=== PATIENT | female | born 1945 | race Caucasian/White ===

== ENCOUNTER 2018-09-11 18:24 | Emergency (ER) | payer MEDICARE, BC ==
[~2018-09-11] VITALS: Ht 167.6 cm; Wt 111.5 kg
[2018-09-11] MEDS ORDERED: LORazepam 2 mg/ml vial IV ONE (19:00)
[2018-09-11 19:18] LABS: ALANINE AMINOTRANSFERASE 15 U/L (12-78); ALBUMIN 3.6 G/DL (3.4-5.0); ALKALINE PHOSPHATASE 119 IU/L (46-116); ANION GAP 15 (8-16); ASPARTATE AMINO TRANSFERASE 21 U/L (10-37); BILIRUBIN,TOTAL 0.3 MG/DL (0.1-1.0); BLOOD UREA NITROGEN 15 MG/DL (7-18); BUN/CREATININE RATIO 13.6 (6.6-38.0); CALCIUM 8.4 MG/DL (8.5-10.1); CHLORIDE 105 MMOL/L (99-107); GLUCOSE 131 MG/DL (70-104); SODIUM 142 MMOL/L (135-145); TOTAL CARBON DIOXIDE 21.6 MMOL/L (24-32); TOTAL PROTEIN 7.3 G/DL (6.4-8.2); eGFR 49 ML/MIN
[2018-09-11 19:21] LABS: BASOPHILS % (AUTO) 0.3 % (0-1); EOSINOPHILS # (AUTO) 0.1 X10'3 (0-0.9); EOSINOPHILS % (AUTO) 2.2 % (0-6); HEMATOCRIT 34.9 % (35.0-45.0); HEMOGLOBIN 11.6 g/dl (12.0-16.0); LYMPHOCYTES # (AUTO) 1.8 X10'3 (1.1-4.8); LYMPHOCYTES % (AUTO) 27.6 % (21-51); MEAN CORPUSCULAR HEMOGLOBIN 29.6 PG (27.0-31.0); MEAN CORPUSCULAR HGB CONC 33.3 % (33.0-36.5); MEAN PLATELET VOLUME 7.4 FL (7.4-10.4); MONOCYTES # (AUTO) 0.5 X10'3 (0-0.9); MONOCYTES % (AUTO) 8.1 % (2-12); NEUTROPHILS # (AUTO) 4.1 X10'3 (1.8-7.7); NEUTROPHILS % (AUTO) 61.8 % (42-75); PLATELET COUNT 216 X10'3 (140-440); RED BLOOD COUNT 3.93 X10'6 (4.20-5.60); RED CELL DISTRIBUTION WIDTH 14.8 % (11.5-14.5); WHITE BLOOD COUNT 6.6 X10'3 (4.5-11.0)
[2018-09-11 19:24] LABS: D-DIMER 1.75 MG/L FEU (0-0.50); PARTIAL THROMBOPLASTIN TIME 30 SECONDS (22-32); PROTHROMBIN TIME 10.5 SECONDS (9.0-12.0)
[2018-09-11] MEDS ORDERED: GABA100C PO (19:52)
[2018-09-11] MEDS ORDERED: iohexol 350MG/ML 100ml bottle IV ONE (19:55)
[2018-09-11 20:25] VITALS: BP 150/77
--- NOTE | 2018-09-11 20:29 | NUR ---
Patient denies relief of anxiety after ativan adm, ERP informed.
[2018-09-11] MEDS ORDERED: LORazepam 0.5 MG tablet PO PRN (20:35)
[2018-09-11] MEDS ORDERED: AZIT-63 PO (20:41)
[2018-09-11] MEDS ORDERED: LORA1TAB PO (20:41)
== END 2018-09-11 21:16 | disposition home or self-care (01) ==
LOC: ER 18:25
DX: J40 Bronchitis, not specified as acute or chronic (principal); F41.9 Anxiety disorder, unspecified; Z79.2 Long term (current) use of antibiotics; Z79.899 Other long term (current) drug therapy; Z60.2 Problems related to living alone
CPT/HCPCS: 36415; 71045; 71275; 80053; 83880; 84484; 85025; 85379; 85610; 85730; 93005; 96374; 99284; J2060; Q9967

== ENCOUNTER 2018-09-13 10:16 | Emergency (ER) | payer MEDICARE, BC ==
[~2018-09-13] VITALS: Ht 167.6 cm; Wt 99.0 kg
[~2018-09-13 10:16] MED LIST: AZIT-63 PO; GABA100C PO; LORA1TAB PO
[2018-09-13 11:32] VITALS: BP 137/71
== END 2018-09-13 11:33 | disposition home or self-care (01) ==
LOC: ER 10:16
DX: R41.0 Disorientation, unspecified (principal); T36.3X5A Adverse effect of macrolides, initial encounter; T42.4X5A Adverse effect of benzodiazepines, initial encounter; F41.9 Anxiety disorder, unspecified; Z79.899 Other long term (current) drug therapy; Y92.89 Other specified places as the place of occurrence of the external cause
CPT/HCPCS: 93005; 99283